=== PATIENT | male | born 1945 | race Caucasian/White ===

== ENCOUNTER 2016-07-21 16:57 | Emergency (ER) | payer MEDICARE, OTHER | END 2016-07-21 18:04 | disposition home or self-care (01) | LOC: ER 16:57 | DX: L30.9 Dermatitis, unspecified (principal); F17.220 Nicotine dependence, chewing tobacco, uncomplicated; Z79.899 Other long term (current) drug therapy; Z88.6 Allergy status to analgesic agent; Z88.5 Allergy status to narcotic agent; Z88.4 Allergy status to anesthetic agent | CPT/HCPCS: 96372; 99282-25; 99283 ==

== ENCOUNTER 2016-10-26 17:08 | Emergency (ER) | payer MEDICARE, OTHER | END 2016-10-26 18:25 | disposition home or self-care (01) | LOC: ER 17:08 | DX: M54.81 Occipital neuralgia (principal); F41.9 Anxiety disorder, unspecified; E03.9 Hypothyroidism, unspecified; K21.9 Gastro-esophageal reflux disease without esophagitis; J44.9 Chronic obstructive pulmonary disease, unspecified; I10 Essential (primary) hypertension; Z85.828 Personal history of other malignant neoplasm of skin; Z88.5 Allergy status to narcotic agent; Z88.4 Allergy status to anesthetic agent | CPT/HCPCS: 20610; 99283; 99283-25; J1030 ==